=== PATIENT | male | born 1955 | race Caucasian/White ===

== ENCOUNTER 2020-11-12 17:24 | Observation (INO) ==
[2020-11-12 20:57] LABS: Alanine Aminotransferase 21 U/L (12-78); Albumin Level 3.7 gm/dl (3.4-5.0); Aspartate Aminotransferase 18 U/L (15-37); BUN Creatinine Ratio 18.4 (10-20); Blood Urea Nitrogen 25 mg/dl (7-18); Calcium 9.1 mg/dl (8.5-10.1); Carbon Dioxide 28 mmol/L (21-32); Chloride 103 mmol/L (98-107); Creatinine Clr Calc Pharmacy 60.5 ml/min; Est GFR (African American) 61.9 ml/min; Est GFR (Non-African American) 53.4 ml/min; Glucose 96 mg/dl (70-99); Hematocrit (blood only) 22.4 % (42-52); Hemoglobin 6.5 g/dL (14.0-18.0); Mean Corpuscular Hemoglobin 22.9 pg (25-34); Mean Corpuscular Volume 78.9 fL (80-100); Platelet Count 438 K/uL (130-400); Potassium 3.9 mmol/L (3.5-5.1); RDW Coefficient of Variation 15.9 % (11.5-14.5); RDW Standard Deviation 46.2 fL (36.4-46.3); Red Blood Count 2.84 M/uL (4.7-6.1); Sodium 137 mmol/L (136-145); White Blood Count 7.85 K/uL (4.8-10.8)
[2020-11-12 20:59] LABS: Basophils # (auto) 0.04 K/uL (0-0.2); Basophils % (auto) 0.5 %; Eosinophils # (auto) 0.14 K/uL (0-0.5); Eosinophils % (auto) 1.8 %; Hypochromasia Present; Immature Granulocytes # (auto) 0.01 K/uL (0.00-0.02); Immature Granulocytes % (auto) 0.1 %; Lymphocytes # (auto) 0.79 K/uL (1.2-3.4); Lymphocytes % (auto) 10.1 %; Monocytes # (auto) 0.49 K/uL (0.11-0.59); Monocytes % (auto) 6.2 %; Neutrophils # (auto) 6.38 K/uL (1.4-6.5); Neutrophils % (auto) 81.3 %; Poikilocytosis Present; Polychromasia 1+
[2020-11-12 21:08] LABS: Albumin Globulin Ratio 0.9 (0.9-2); Alkaline Phosphatase 41 U/L (45-117); Bilirubin,Total 0.4 mg/dl (0.2-1); Globulin 4.3 gm/dl (2.5-4.0); Troponin I < 0.015 ng/ml (0-0.045)
[2020-11-12] MEDS ORDERED: SODIUM CHLORIDE 0.9% 1000ML 1,000 ML IV ONE (21:18)
[2020-11-12] MEDS ORDERED: SODIUM CHLORIDE 0.9% 250 ML IV PRN (21:18)
[2020-11-12 21:22] LABS: Appearance Urine Clear (Clear); Bilirubin Urine Negative (Negative); Blood Urine Negative (Negative); Color Urine Yellow; Glucose Urine UA Negative (Negative); Ketones Urine Negative (Negative); Leukocyte Esterase Urine Negative (Negative); Nitrite Urine Negative (Negative); Protein Urine Trace (Negative); Specific Gravity Urine 1.025 (1.000-1.030); Urobilinogen Urine Negative (Negative); pH Urine 5.5 (4.5-7.5)
[2020-11-12 21:30] LABS: Reticulocyte % 1.6 % (0.5-2.0); Reticulocytes # 0.05 10^6/uL (0.02-0.10)
[2020-11-12 21:34] LABS: Bacteria Urine Negative (Negative); Epithelial Cell Urine 0-5 /lpf (0-5); RBC Urine 0-4 /hpf (0-4); WBC Urine 0-5 /hpf (0-5)
[2020-11-12 21:49] LABS: Bilirubin Direct < 0.1 mg/dl (0-0.2); Ferritin 6.9 ng/ml (8-388); Iron 13 mcg/dl (35-175); Lipase 233 U/L (73-393); Phosphorus 3.6 mg/dl (2.5-4.9); T4 Free Thyroxine 0.33 ng/dl (0.8-1.6); Total Iron Binding Capacity 452 mcg/dl (250-450); Transferrin 389 mg/dl (200-360)
[2020-11-12] MEDS ORDERED: OPTIRAY 320 100ml IV ONE (22:51)
--- NOTE | 2020-11-12 23:27 | Emergency Department Note ---
Impression & Plan Symptomatic anemia, Hypothyroidism, Iron deficiency, Syncope ED Provider Note NAME: JACQUELINE LIPSCOMB AGE: 65 SEX: M ARRIVES VIA: Walk-In INFORMANT: Patient, ED PROVIDER(S): Kermit Orozco MD CHIEF COMPLAINT: Weakness, lightheadedness, syncope PLAN: Disposition: Admit MEDICAL DECISION MAKING: The patient is a pleasant 65-year-old gentleman with a past medical history of remote tonsillar cancer per patient who presents to the emergency department for evaluation of syncopal episode yesterday in the setting of having ongoing generalized weakness, lightheadedness over the past month or more. He reports yesterday he was doing the dishes and probably bent down and began to feel lightheaded so he sat in the kitchen chair and thought he was awake the whole time but reports his said he was "out for several seconds". He never fell to the ground. He does report that he did vomit and this was not bloody or black. He denies any black stool. He reports he intermittently might have small amounts of blood that he attributes to hemorrhoids. He denies any gross bloody stool or hemorrhage. He denies any recent illness including denies feve rs, chills, cough, congestion. On arrival the patient is fatigued appearing but no acute distress, afebrile with stable vital signs. He appears clinically dry. He has mild pallor. His abdomen is benign. He has no focal deficits. EKG without overt acute ischemia. Chest x-ray negative for acute car diopulmonary process per my preliminary review. WBC within normal limits. H/H 6.5/22.4 without prior values for comparison. Chemistry without metabolic acidosis. BUN is 25. Iron is low at 13 with ferritin low at 6.9. LFTs unremarkable. Troponin negative/undetectable. TSH is elevated with low free T4 and T3 c/w hypothyroidism. UA without evidence of infection. COVID-19 PCR was negative. Given the patient's symptomatic anemia he was consented and agreed to proceed with blood transfusion. He was crossed for [address] of the head and abdomen and pelvis were performed and negative for acute process per preliminary stat rad report. Patient agrees with plan for admission. Case was discussed [place]. Boyd, [facility] [place], who will evaluate the patient for admission. Triage Nursing notes reviewed and agree them. Prior medical records reviewed Vital Signs: reviewed and remarkable for no significant abnormalities Differential diagnosis: Infection, dehydration, metabolic abnormality, hypo/hyperglycemia, electrolyte disturbance, anemia, hypoxia, cardiac sources, intracerebral event, toxicologic, neurologic, as well as other pathologies. ER treatment provided: See below. Diagnostics interpreted by me: ECG: Normal sinus rhythm with sinus arrhythmia, 72 bpm, no ectopy, no overt ST elevation or depression, QTC 457, QRS 110. Cardiac Monitoring: An order for continuous cardiac monitoring was placed and demonstrated normal sinus rhythm with sinus arrhythmia, no ectopy, 72 bpm. Laboratory studies: See below Imaging studies: [facility] Preliminary Findings Only See Final Report For Complete Findings CT HEAD: Comparison: None. No ICH, mass effect or edema. No evidence of acute cortical stroke. Periventricular small vessel ischemic change. Mild generalized brain atrophy. Visualized sinuses and mastoid air cells are clear. Radiologist: Trini Lyman MD Study ready at 23:01 and initial results transmitted at 23:22 Preliminary Findings Only See Final Report For Complete Findings CT ABDOMEN & PELVIS With Contrast: No prior exam for comparison. Minimal bilateral lower lobe atelectasis. Normal cardiac size with coronary artery calcifications. No pleural effusion or pneumothorax pain Normal liver, gallbladder and biliary system. Normal pancreas, spleen, bilateral adrenal glands. Normal right kidney. Left lower renal pole simple cyst measuring 4.8 x 4.6 cm. Otherwise normal left kidney. Normal stomach. Nonspecific small bowel. Moderate fecal debris within the colon. Normal appendix. No signs of bowel obstruction. Normal urinary bladder. Normal size of prostate gland. Osteopenia along with degenerative disease of the spine. Radiologist: Trini Lyman MD Study ready at 23:11 and initial results transmitted at 23:49 Consultation(s): Case was discussed with Dr. Boyd, [facility] [place], who will evaluate the patient for admission. HPI: The patient is a pleasant 65-year-old gentleman with a past medical history of remote tonsillar cancer per patient who presents to the emergency department for evaluation of syncopal episode yesterday in the setting of having ongoing generalized weakness, lightheadedness over the past month or more. He reports yesterday he was doing the dishes and probably bent down and began to feel lightheaded so he sat in the kitchen chair and thought he was awake the whole time but reports his said he was "out for several seconds". He never fell to the ground. He does report that he did vomit and this was not bloody or black. He denies any black stool. He reports he intermittently might have small amounts of blood that he attributes to hemorrhoids. He denies any gross bloody stool or hemorrhage. He denies any recent illness including denies fevers, chills, cough, congestion. ROS: See above HPI for pertinent positives & negatives. A total of 10 systems reviewed and were otherwise negative. PAST MEDICAL HISTORY:See Below PAST SURGICAL HISTORY:See Below FAMILY HISTORY:See Below SOCIAL HISTORY:See Below HOME MEDICATIONS:See Below ALLERGIES:See Below VITALS:See Below PHYSICAL EXAMINATION: GENERAL: Awake, alert, fatigued-appearing, in no distress HENT: Normocephalic, atraumatic. Oropharynx mucous membranes. EYES: Mild pallor to conjunctiva. Sclera non-icteric. NECK: Supple. No nuchal rigidity. FROM. No JVD. RESPIRATORY: Clear to auscultation. CARDIAC: Regular rate, normal rhythm. Extremities warm and well perfused. Pulses equal. ABDOMEN: Soft, non-distended. No tenderness to palpation. No rebound or guarding. No masses. MUSCULOSKELETAL: Chest examination reveals no tenderness. The back is s ymmetrical on inspection without obvious abnormality. There is no CVA tenderness to palpation. No joint edema. LOWER EXTREMITIES: Calves are equal size bilaterally and non-tender. No edema. No discoloration. NEURO: Normal sensorium. No sensory or motor deficits noted. SKIN: Mild pallor. No rash or jaundice noted. ED COURSE: Critical Care: I have personally spent greater than 45 minutes of critical care time in the direct management of this patient. This includes bedside care, interpretation of diagnostic studies, and testing, discussion with consultants, patient, and family members, and other required patient management activities. This 45 minutes is in excess of all separately billable procedures. Kermit Orozco MD Past Med/Surg History Medical History (Updated 11/13/20 @ 17:17 by Kermit Orozco MD) History of cancer tonsil s/p surgical removal, chemo and XRT Surgical History No significant past surgical history Family History Other Intestinal cancer Thyroid cancer Social History Smoking Status: Former smoker Second Hand Exposure: No; Hx Alcohol Use: Yes Alcohol type: hard liquor Hx Substance Use: No Preferred Language: Micronesian Communication Ability: Effective Beliefs That Will Affect Care: None marital status: Current Living Situation: Spouse Feels Safe at Home: Yes Assistive Devices: None Allergies Allergies Allergy/AdvReac Type Severity Reaction Status Date / Time No Known Allergies Allergy Unverified 11/12/20 22:17 Home Meds Home Medications Medication Instructions Recorded Confirmed food supplemt, lactose-reduced 1 ea PO QAM 11/12/20 11/12/20 0.04 gram-1 kcal/mL oral liquid (Boost) pediatric multivitamin no.76 2 tab PO QAM 11/12/20 11/12/20 (Gummy Dinos) Previous Rx's Medication Instructions Recorded levothyroxine 100 mcg tablet 100 mcg PO DAILYBB 30 Days #30 tab 11/13/20 (Synthroid) Results & Data (ED) Vital Signs Vital Signs - 24 hr 11/12/20 17:32 11/12/20 20:18 11/12/20 21:36 Temperature 36.9 C Temperature Source Temporal Artery Scan Pulse Rate - Lying 69 Pulse Rate - Sitting 72 Pulse Rate - Standing 68 Pulse Rate 82 70 Pulse Rate from SpO2 Sensor 71 Respiratory Rate 19 17 Respiratory Effort / Characteristics Non-Labored Respiratory Depth Normal Respiratory Pattern Regular Blood Pressure - Lying 153/88 H Blood Pressure - Sitting 157/83 H Blood Pressure- Standing 118/45 L Blood Pressure 114/69 Blood Pressure Mean 84 Blood Pressure Position Pulse Oximetry 99 99 Oxygen Delivery Method Room Air Room Air Sepsis Recent Fever Within 48 Hours No Sepsis New/Unexplained Change in Mental Status N/A Sepsis Action Taken by Nursing No Action Required 11/12/20 22:00 11/12/20 22:30 11/12/20 23:00 Temperature Temperature Source Pulse Rate - Lying Pulse Rate - Sitting Pulse Rate - Standing Pulse Rate 71 73 Pulse Rate from SpO2 Sensor 70 73 78 Respiratory Rate 16 14 Respiratory Effort / Characteristics Respiratory Depth Respiratory Pattern Blood Pressure - Lying Blood Pressure - Sitting Blood Pressure- Standing Blood Pressure 153/97 H 158/84 H Blood Pressure Mean 115 108 Blood Pressure Position Pulse Oximetry 99 98 98 Oxygen Delivery Method Room Air Room Air Sepsis Recent Fever Within 48 Hours Sepsis New/Unexplained Change in Mental Status Sepsis Action Taken by Nursing 11/12/20 23:30 11/13/20 00:00 11/13/20 00:16 Temperature 36.7 C Temperature Source Oral Pulse Rate - Lying Pulse Rate - Sitting Pulse Rate - Standing Pulse Rate 69 70 Pulse Rate from SpO2 Sensor 70 85 Respiratory Rate 12 18 Respiratory Effort / Characteristics Respiratory Depth Respiratory Pattern Blood Pressure - Lying Blood Pressure - Sitting Blood Pressure- Standing Blood Pressure 152/93 H 149/90 H 162/98 H Blood Pressure Mean 112 109 119 Blood Pressure Position Lying Pulse Oximetry 96 99 98 Oxygen Delivery Method Sepsis Recent Fever Within 48 Hours Sepsis New/Unexplained Change in Mental Status Sepsis Action Taken by Nursing 11/13/20 00:30 11/13/20 00:34 11/13/20 00:35 Temperature 36.5 C 36.5 C Temperature Source Oral Oral Pulse Rate - Lying Pulse Rate - Sitting Pulse Rate - Standing Pulse Rate 77 77 77 Pulse Rate from SpO2 Sensor 76 Respiratory Rate 18 18 18 Respiratory Effort / Characteristics Respiratory Depth Respiratory Pattern Blood Pressure - Lying Blood Pressure - Sitting Blood Pressure- Standing Blood Pressure 177/104 H 161/99 H 161/99 H Blood Pressure Mean 128 119 119 Blood Pressure Position Lying Lying Pulse Oximetry 99 99 99 Oxygen Delivery Method Sepsis Recent Fever Within 48 Hours Sepsis New/Unexplained Change in Mental Status Sepsis Action Taken by Nursing Laboratory Data Attestation: I reviewed the patient's lab results. Result diagrams: 11/13/20 06:08 11/12/20 20:22 Lab Results 11/12/20 11/12/20 11/12/20 Range/Units 20:22 20:22 20:22 WBC 7.85 (4.8-10.8) K/uL RBC 2.84 L (4.7-6.1) M/uL Hgb 6.5 L* (14.0-18.0) g/dL Hct 22.4 L (42-52) % MCV 78.9 L (80-100) fL MCH 22.9 L (25-34) pg MCHC 29.0 L (32-36) g/dL RDW Std Deviation 46.2 (36.4-46.3) fL RDW Coeff of Jeanine 15.9 H (11.5-14.5) % Plt Count 438 H (130-400) K/uL MPV 9.0 (7.4-10.4) fL Immature Gran % (Auto) 0.1 % Neut % (Auto) 81.3 % Lymph % (Auto) 10.1 % [place] % (Auto) 6.2 % Eos % (Auto) 1.8 % Baso % (Auto) 0.5 % Reticulocyte % (Auto) 1.6 (0.5-2.0) % Neut # (Auto) 6.38 (1.4-6.5) K/uL Lymph # (Auto) 0.79 L (1.2-3.4) K/uL [place] # (Auto) 0.49 (0.11-0.59) K/uL Eos # (Auto) 0.14 (0-0.5) K/uL Baso # (Auto) 0.04 (0-0.2) K/uL Reticulocyte # 0.05 (0.02-0.10) 10^6/uL Immature Gran # (Auto) 0.01 (0.00-0.02) K/uL Polychromasia 1+ Hypochromasia Present Poikilocytosis Present Sodium 137 (136-145) mmol/L Potassium 3.9 (3.5-5.1) mmol/L Chloride 103 (98-107) mmol/L Carbon Dioxide 28 (21-32) mmol/L Anion Gap 6.0 (3-11) BUN 25 H (7-18) mg/dl Creatinine 1.37 (0.6-1.4) mg/dl Est Cr Clr Drug Dosing 60.5 ml/min Est GFR ( Amer) 61.9 ml/min Est GFR (Non-Af Amer) 53.4 ml/min BUN/Creatinine Ratio 18.4 (10-20) Glucose 96 (70-99) mg/dl Calcium 9.1 (8.5-10.1) mg/dl Phosphorus (2.5-4.9) mg/dl Magnesium (1.8-2.4) mg/dl Iron (35-175) mcg/dl TIBC (250-450) mcg/dl Transferrin (200-360) mg/dl Ferritin (8-388) ng/ml Total Bilirubin 0.4 (0.2-1) mg/dl Direct Bilirubin (0-0.2) mg/dl AST 18 (15-37) U/L ALT 21 (12-78) U/L Alkaline Phosphatase 41 L (45-117) U/L Troponin I < 0.015 (0-0.045) ng/ml Total Protein 8.0 (6.4-8.2) gm/dl Albumin 3.7 (3.4-5.0) gm/dl Globulin 4.3 H (2.5-4.0) gm/dl Albumin/Globulin Ratio 0.9 (0.9-2) Lipase (73-393) U/L TSH 84.000 H (0.300-4.500) uIu/ml Free T4 (0.8-1.6) ng/dl Free T3 (2.3-4.2) pg/ml Urine Color Urine Appearance (Clear) Urine pH (4.5-7.5) Ur Specific Gilliam (1.000-1.030) Urine Protein (Negative) Urine Glucose (UA) (Negative) Urine Ketones (Negative) Urine Blood (Negative) Urine Nitrite (Negative) Urine Bilirubin (Negative) Urine Urobilinogen (Negative) Ur Leukocyte Esterase (Negative) Urine RBC (0-4) /hpf Urine WBC (0-5) /hpf Ur Epithelial Cells (0-5) /lpf Urine Bacteria (Negative) COVID-19 Eval Order SARS-CoV-2 (PCR) (Negative) Blood Type Blood Type Recheck Antibody Screen Crossmatch 11/12/20 11/12/20 11/12/20 Range/Units 20:22 21:14 21:24 WBC (4.8-10.8) K/uL RBC (4.7-6.1) M/uL Hgb (14.0-18.0) g/dL Hct (42-52) % MCV (80-100) fL MCH (25-34) pg MCHC (32-36) g/dL RDW Std Deviation (36.4-46.3) fL RDW Coeff of Jeanine (11.5-14.5) % Plt Count (130-400) K/uL MPV (7.4-10.4) fL Immature Gran % (Auto) % Neut % (Auto) % Lymph % (Auto) % [place] % (Auto) % Eos % (Auto) % Baso % (Auto) % Reticulocyte % (Auto) (0.5-2.0) % Neut # (Auto) (1.4-6.5) K/uL Lymph # (Auto) (1.2-3.4) K/uL [place] # (Auto) (0.11-0.59) K/uL Eos # (Auto) (0-0.5) K/uL Baso # (Auto) (0-0.2) K/uL Reticulocyte # (0.02-0.10) 10^6/uL Immature Gran # (Auto) (0.00-0.02) K/uL Polychromasia Hypochromasia Poikilocytosis Sodium (136-145) mmol/L Potassium (3.5-5.1) mmol/L Chloride (98-107) mmol/L Carbon Dioxide (21-32) mmol/L Anion Gap (3-11) BUN (7-18) mg/dl Creatinine (0.6-1.4) mg/dl Est Cr Clr Drug Dosing ml/min Est GFR ( Amer) ml/min Est GFR (Non-Af Amer) ml/min BUN/Creatinine Ratio (10-20) Glucose (70-99) mg/dl Calcium (8.5-10.1) mg/dl Phosphorus 3.6 (2.5-4.9) mg/dl Magnesium 2.0 (1.8-2.4) mg/dl Iron 13 L (35-175) mcg/dl TIBC 452 H (250-450) mcg/dl Transferrin 389 H (200-360) mg/dl Ferritin 6.9 L (8-388) ng/ml Total Bilirubin (0.2-1) mg/dl Direct Bilirubin < 0.1 (0-0.2) mg/dl AST (15-37) U/L ALT (12-78) U/L Alkaline Phosphatase (45-117) U/L Troponin I (0-0.045) ng/ml Total Protein (6.4-8.2) gm/dl Albumin (3.4-5.0) gm/dl Globulin (2.5-4.0) gm/dl Albumin/Globulin Ratio (0.9-2) Lipase 233 (73-393) U/L TSH (0.300-4.500) uIu/ml Free T4 0.33 L (0.8-1.6) ng/dl Free T3 (2.3-4.2) pg/ml Urine Color Yellow Urine Appearance Clear (Clear) Urine pH 5.5 (4.5-7.5) Ur Specific Gilliam 1.025 (1.000-1.030) Urine Protein Trace H (Negative) Urine Glucose (UA) Negative (Negative) Urine Ketones Negative (Negative) Urine Blood Negative (Negative) Urine Nitrite Negative (Negative) Urine Bilirubin Negative (Negative) Urine Urobilinogen Negative (Negative) Ur Leukocyte Esterase Negative (Negative) Urine RBC 0-4 (0-4) /hpf Urine WBC 0-5 (0-5) /hpf Ur Epithelial Cells 0-5 (0-5) /lpf Urine Bacteria Negative (Negative) COVID-19 Eval Order Covid19 at [facility] SARS-CoV-2 (PCR) (Negative) Blood Type Blood Type Recheck Antibody Screen Crossmatch 11/12/20 11/12/20 11/12/20 Range/Units 21:24 21:44 21:44 WBC (4.8-10.8) K/uL RBC (4.7-6.1) M/uL Hgb (14.0-18.0) g/dL Hct (42-52) % MCV (80-100) fL MCH (25-34) pg MCHC (32-36) g/dL RDW Std Deviation (36.4-46.3) fL RDW Coeff of Jeanine (11.5-14.5) % Plt Count (130-400) K/uL MPV (7.4-10.4) fL Immature Gran % (Auto) % Neut % (Auto) % Lymph % (Auto) % [place] % (Auto) % Eos % (Auto) % Baso % (Auto) % Reticulocyte % (Auto) (0.5-2.0) % Neut # (Auto) (1.4-6.5) K/uL Lymph # (Auto) (1.2-3.4) K/uL [place] # (Auto) (0.11-0.59) K/uL Eos # (Auto) (0-0.5) K/uL Baso # (Auto) (0-0.2) K/uL Reticulocyte # (0.02-0.10) 10^6/uL Immature Gran # (Auto) (0.00-0.02) K/uL Polychromasia Hypochromasia Poikilocytosis Sodium (136-145) mmol/L Potassium (3.5-5.1) mmol/L Chloride (98-107) mmol/L Carbon Dioxide (21-32) mmol/L Anion Gap (3-11) BUN (7-18) mg/dl Creatinine (0.6-1.4) mg/dl Est Cr Clr Drug Dosing ml/min Est GFR ( Amer) ml/min Est GFR (Non-Af Amer) ml/min BUN/Creatinine Ratio (10-20) Glucose (70-99) mg/dl Calcium (8.5-10.1) mg/dl Phosphorus (2.5-4.9) mg/dl Magnesium (1.8-2.4) mg/dl Iron (35-175) mcg/dl TIBC (250-450) mcg/dl Transferrin (200-360) mg/dl Ferritin (8-388) ng/ml Total Bilirubin (0.2-1) mg/dl Direct Bilirubin (0-0.2) mg/dl AST (15-37) U/L ALT (12-78) U/L Alkaline Phosphatase (45-117) U/L Troponin I (0-0.045) ng/ml Total Protein (6.4-8.2) gm/dl Albumin (3.4-5.0) gm/dl Globulin (2.5-4.0) gm/dl Albumin/Globulin Ratio (0.9-2) Lipase (73-393) U/L TSH (0.300-4.500) uIu/ml Free T4 (0.8-1.6) ng/dl Free T3 0.93 L (2.3-4.2) pg/ml Urine Color Urine Appearance (Clear) Urine pH (4.5-7.5) Ur Specific Gilliam (1.000-1.030) Urine Protein (Negative) Urine Glucose (UA) (Negative) Urine Ketones (Negative) Urine Blood (Negative) Urine Nitrite (Negative) Urine Bilirubin (Negative) Urine Urobilinogen (Negative) Ur Leukocyte Esterase (Negative) Urine RBC (0-4) /hpf Urine WBC (0-5) /hpf Ur Epithelial Cells (0-5) /lpf Urine Bacteria (Negative) COVID-19 Eval Order SARS-CoV-2 (PCR) NEGATIVE (Negative) Blood Type B Positive Blood Type Recheck Antibody Screen NEGATIVE Crossmatch See Detail 11/12/20 Range/Units 23:03 WBC (4.8-10.8) K/uL RBC (4.7-6.1) M/uL Hgb (14.0-18.0) g/dL Hct (42-52) % MCV (80-100) fL MCH (25-34) pg MCHC (32-36) g/dL RDW Std Deviation (36.4-46.3) fL RDW Coeff of Jeanine (11.5-14.5) % Plt Count (130-400) K/uL MPV (7.4-10.4) fL Immature Gran % (Auto) % Neut % (Auto) % Lymph % (Auto) % [place] % (Auto) % Eos % (Auto) % Baso % (Auto) % Reticulocyte % (Auto) (0.5-2.0) % Neut # (Auto) (1.4-6.5) K/uL Lymph # (Auto) (1.2-3.4) K/uL [place] # (Auto) (0.11-0.59) K/uL Eos # (Auto) (0-0.5) K/uL Baso # (Auto) (0-0.2) K/uL Reticulocyte # (0.02-0.10) 10^6/uL Immature Gran # (Auto) (0.00-0.02) K/uL Polychromasia Hypochromasia Poikilocytosis Sodium (136-145) mmol/L Potassium (3.5-5.1) mmol/L Chloride (98-107) mmol/L Carbon Dioxide (21-32) mmol/L Anion Gap (3-11) BUN (7-18) mg/dl Creatinine (0.6-1.4) mg/dl Est Cr Clr Drug Dosing ml/min Est GFR ( Amer) ml/min Est GFR (Non-Af Amer) ml/min BUN/Creatinine Ratio (10-20) Glucose (70-99) mg/dl Calcium (8.5-10.1) mg/dl Phosphorus (2.5-4.9) mg/dl Magnesium (1.8-2.4) mg/dl Iron (35-175) mcg/dl TIBC (250-450) mcg/dl Transferrin (200-360) mg/dl Ferritin (8-388) ng/ml Total Bilirubin (0.2-1) mg/dl Direct Bilirubin (0-0.2) mg/dl AST (15-37) U/L ALT (12-78) U/L Alkaline Phosphatase (45-117) U/L Troponin I (0-0.045) ng/ml Total Protein (6.4-8.2) gm/dl Albumin (3.4-5.0) gm/dl Globulin (2.5-4.0) gm/dl Albumin/Globulin Ratio (0.9-2) Lipase (73-393) U/L TSH (0.300-4.500) uIu/ml Free T4 (0.8-1.6) ng/dl Free T3 (2.3-4.2) pg/ml Urine Color Urine Appearance (Clear) Urine pH (4.5-7.5) Ur Specific Gilliam (1.000-1.030) Urine Protein (Negative) Urine Glucose (UA) (Negative) Urine Ketones (Negative) Urine Blood (Negative) Urine Nitrite (Negative) Urine Bilirubin (Negative) Urine Urobilinogen (Negative) Ur Leukocyte Esterase (Negative) Urine RBC (0-4) /hpf Urine WBC (0-5) /hpf Ur Epithelial Cells (0-5) /lpf Urine Bacteria (Negative) COVID-19 Eval Order SARS-CoV-2 (PCR) (Negative) Blood Type Blood Type Recheck B Positive Antibody Screen Crossmatch Administered Medications Discontinued Medications Sodium Chloride (Nss 1000ml) 1,000 mls @ 999 mls/hr IV .[id number] ONE Stop: 11/12/20 22:18 Last Infusion: 11/12/20 23:40 Dose: 0 mls/hr Documented by: [id number] Admin: 11/12/20 22:23 Dose: 999 mls/hr Documented by: [id number] Ioversol (Optiray 320 100ml) 94 ml IV ONCE ONE Stop: 11/12/20 22:52 Last Admin: 11/12/20 22:51 Dose: 94 ml Documented by: [id number] Levothyroxine Sodium (Levothyroxine Sodium 100 Mcg Tablet) 100 mcg PO DAILYBB [facility] Stop: 12/13/20 06:29 Last Admin: 11/13/20 05:55 Dose: 100 mcg Documented by: [id number] Imaging Data Radiologist's Impression: Chest X-Ray 11/12/20 20:17 SINGLE VIEW CHEST CLINICAL HISTORY: Generalized weakness. FINDINGS: An AP, portable, upright chest radiograph is obtained. No prior studies are available for comparison at the time of dictation. The heart is top normal for projection. The mediastinal contour is within normal limits. Question 8 mm nodular density in the right upper lobe. No airspace consolidation or pleural effusion is identified. Atelectasis is seen at the lung bases. No pneumothorax is seen. The bony thorax is grossly intact. IMPRESSION: 1. No acute cardiopulmonary abnormality. 2. Question an 8 mm nodular density in the right upper lung. This may be artifactual. Nonemergent chest CT is recommended for further assessment. ACT 112: Positive. There are findings on this exam that require communication between the performing entity and the patient following Patient Test Result Information Act ([place] Act 112) guidelines. Electronically signed by: Jean-Claude Tony M.D. 11/13/2020 8:46 AM Abdomen/Pelvis CT 11/12/20 21:[address] WITH IV CONTRAST CT DOSE: HISTORY: intermittent blood in stool, anemia TECHNIQUE: Multiaxial CT images of the abdomen and pelvis were performed following the use of intravenous contrast. A dose lowering technique was utilized adhering to the principles of ALARA. COMPARISON STUDY: None. FINDINGS: Tree-in-bud nodular opacities within the lung bases consistent with a mild infectious bronchiolitis. No pneumoperitoneum. No pneumatosis. No acute fractures within the visualized osseous structures. Mild anterior wedging within the lower thoracic spine is likely chronic. The liver, gallbladder, pancreas, adrenal glands, spleen, and right kidney are unremarkable. No hydronephrosis. There is a 4.7 cm left renal cyst. The main portal vein is patent. No retroperitoneal lymphadenopathy. Mild bladder wall thickening is likely due to mild prostate gland enlargement. No retroperitoneal or pelvic lymphadenopathy. Suboptimal evaluation for bowel pathology due to the lack of oral contrast. Ther e appears to be focal thickening within the proximal ascending colon at the ileocecal valve best seen in the right lower quadrant on image 216. This measures 4.6 cm in length and is concerning for a colonic mass. Borderline dilated terminal ileum measuring up to 3.1 cm diameter. Therefore, this could represent a low-grade partial small bowel obstruction. This may be secondary to the suspected mass. Normal appendix. IMPRESSION: 1. Focal thickening within the proximal ascending colon at the level of the ileocecal valve which measures 4.6 cm in length. This is suspicious for a colonic mass. Follow-up colonoscopy is recommended for further evaluation. 2. Borderline dilated terminal ileum measuring up to 3.1 cm in diameter. Theref ore, this could represent a low-grade partial small bowel obstruction secondary to the suspected colonic mass. 3. No evidence for metastatic disease. 4. These findings were called/faxed to emergency department following dictation. ACT 112: Positive. There are findings on this exam that require communication between the performing entity and the patient following Patient Test Result Information Act ([place] Act 112) guidelines. Electronically signed by: Wilver Gillespie M.D. 11/13/2020 7:[address] 11/12/20 21:[address] DOSE: 1574.68 mGy.cm HISTORY: syncope, anemia TECHNIQUE: Multiaxial CT images of the head were performed without the use of intravenous contrast. Automated exposure control was utilized for this study. A dose lowering technique was utilized adhering to the principles of ALARA. Comparison: None. Findings: The paranasal sinuses and mastoid air cells are clear. The calvarium and skull base are intact. The ventricles and sulci are within normal limits. There is no mass, hematoma, midline shift, or acute infarct. Impression: No acute intracranial abnormality. ACT 112: Negative or not required by law. Electronically signed by: Wilver Gillespie M.D. 11/13/2020 7:08 AM Discharge Plan Visit Data Chief Complaint: Weakness Stated Complaint: DIZZY WHEN BENDING OVER/GETTING UP, WEAKNESS ED Provider: Kermit Orozco Discharge Problem: Symptomatic anemia, Hypothyroidism, Iron deficiency, Syncope Patient Disposition: Admitted As Inpatient Discharge Instructions Interventions: ED Discharge Assessment Last Done: 11/13/20 01:41 Discharge Problem: Hypothyroidism Qualifiers: Hypothyroidism type: unspecified Qualified Code(s): E03.9 - Hypothyroidism, unspecified Syncope Qualifiers: Syncope type: unspecified Qualified Code(s): R55 - Syncope and collapse
--- NOTE | 2020-11-13 00:57 | History & Physical Report ---
Date of Service November 13, 2020 Assessment & Plan (1) Anemia: Plan: Patient with microcytic, hypochromic anemia with Hgb of 6.5, Hct of 22.4 with generalized weakness, fatigue, syncope. No known history of anemia. No prior transfusions. Iron studies suggest iron deficiency with low iron and Ferritin and high TIBC. Ddx to include GI losses, malignancy, secondary to hypothyroidism. Transfusion 2u PRBCs initiated in ER -Continue transfusion -Repeat CBC in AM -Hemoccult stools -Consider GI consultation - patient will need to have screening colonoscopy - has not had one yet. ?Inpatient vs outpatient (2) Hypothyroidism: Plan: Labs suggest primary hypothyroidism with elevation of TSH and low T3 and T4. He reports being told years ago that he had a problem with his thyroid but has nevstevan r been on medication. His exam does show some anterior neck fullness - ?age related changes vs small goiter. His father did pass away with thyroid cancer May be causing anemia as above -Check anti-TPO and anti-thyroglobulin -Check Thyroid ultrasound -Initiate Synthroid Plan: F/E/N - Heplock. Electrolytes WNL. Clear liquid diet as tolerated Ppx - SCDs Code - Full Dispo - Observation to medical History of Present Illness Chief Complaint: weakness, fatigue, syncope Primary Care Provider: Zackary Boyd MD Buck Watson is a pleasant 65yo male presenting with symptomatic anemia requiring transfusion. He reports progressive generalized weakness, lightheadedness over the last 1.5 months. He notes a decreased exercise tolerance and low energy level - needing to stop several times while mowing the lawn or walking up his steep driveway lately. He also has episodic lightheadedness, mostly noted with changing positions. Patient had a syncopal event yesterday. He was cleaning up after dinner and became lightheaded and dizzy with some blurry vision after bending over. He sat down in the chair to rest then remembers waking up to his shouting his name. He had a small amount of vomit on his shirt when he woke up. He denies chest pain, palpitations, SOB or RICHTER. He denies head trauma or fall. No melena, hemetemesis. He reports occasionally experiencing some blood in the toilet bowl after a BM but thinks it may be secondary to hemorrhoids. No bruising or bleeding. No hematuria. No history of prior blood transfusions. ER Course: 2u PRBCs Allergies Allergy/AdvReac Type Severity Reaction Status Date / Time No Known Allergies Allergy Unverified 11/12/20 22:17 Home Medications Medication Instructions Recorded Confirmed Type food supplemt, lactose-reduced 1 ea PO QAM 11/12/20 11/12/20 History 0.04 gram-1 kcal/mL oral liquid (Boost) pediatric multivitamin no.76 2 tab PO QAM 11/12/20 11/12/20 History (Gummy Dinos) Past Med/Surg History Medical History (Updated 11/13/20 @ 01:08 by Priya Boyd DO) History of cancer tonsil s/p surgical removal, chemo and XRT Surgical History (Updated 11/13/20 @ 01:02 by Priya Boyd DO) No significant past surgical history Family History (Updated 11/13/20 @ 01:02 by Priya Boyd DO) Other Intestinal cancer Thyroid cancer Social History Smoking Status: Former smoker Feels Safe at Home: Yes Review of Systems Review of Systems: All systems reviewed & are unremarkable except as noted in HPI & below Physical Exam Physical Exam: General: patient resting comfortably, NAD, non-toxic in appearance, AA&O x 4, +Pallor Skin: warm, dry, intact, no rashes or lesions, pale HEENT: NC/AT, PERRL, EOMI, anicteric sclera, conjunctiva without injection, external ear normal to inspection and nontender, nares patent, moist mucus membranes, dentition intact, small lesion on left tongue, neck supple, trachea midline, no LAD, fullness of anterior neck possibly consistent with small goiter. No tenderness with palpation of thyroid gland, no appreciable nodules, no JVD Heart: +S1/S2, regular, no m/r/g Lungs: equal air entry bilaterally, no rales/rhonchi/wheezes Abd: +BS, soft, NT/ND, no masses/organomegaly/ascites Ext: warm, 2+ pulses in UE/LE bilaterally, no clubbing/cyanosis or edema Neuro: nonfocal, patient AA&O x 4, speech intact, no facial droop, moving all extremities on command with equal strength 5/5 Results & Data Results & Data ([place]) Vital Signs (Past 12 Hours) Vital Signs Temp Pulse Resp BP Pulse Ox 11/13/20 00:50 36.7 C 70 18 144/92 H 97 11/13/20 00:35 36.5 C 77 18 161/99 H 99 11/13/20 00:34 36.5 C 77 18 161/99 H 99 11/13/20 00:16 36.7 C 70 18 162/98 H 98 11/13/20 00:00 69 12 149/90 H 99 11/12/20 23:30 152/93 H 96 11/12/20 23:00 158/84 H 98 11/12/20 22:30 73 14 153/97 H 98 11/12/20 22:00 71 16 99 11/12/20 21:36 70 17 99 11/12/20 17:32 36.9 C 82 19 114/69 99 Laboratory Results Laboratory Results WBC 7.85 K/uL (4.8-10.8) 11/12/20 20:22 RBC 2.84 M/uL (4.7-6.1) L 11/12/20 20:22 Hgb 6.5 g/dL (14.0-18.0) L* 11/12/20 20:22 Hct 22.4 % (42-52) L 11/12/20 20:22 MCV 78.9 fL (80-100) L 11/12/20 20:22 MCH 22.9 pg (25-34) L 11/12/20 20:22 MCHC 29.0 g/dL (32-36) L 11/12/20 20:22 RDW Std Deviation 46.2 fL (36.4-46.3) 11/12/20 20:22 RDW Coeff of Jeanine 15.9 % (11.5-14.5) H 11/12/20 20:22 Plt Count 438 K/uL (130-400) H 11/12/20 20:22 MPV 9.0 fL (7.4-10.4) 11/12/20 20:22 Immature Gran % (Auto) 0.1 % 11/12/20 20:22 Neut % (Auto) 81.3 % 11/12/20 20:22 Lymph % (Auto) 10.1 % 11/12/20 20:22 Schleicher % (Auto) 6.2 % 11/12/20 20: Eos % (Auto) 1.8 % 11/12/20 20: Baso % (Auto) 0.5 % 11/12/20 20: Reticulocyte % (Auto) 1.6 % (0.5-2.0) 11/12/20 20:22 Neut # (Auto) 6.38 K/uL (1.4-6.5) 11/12/20 20: Lymph # (Auto) 0.79 K/uL (1.2-3.4) L 11/12/20 20:22 Schleicher # (Auto) 0.49 K/uL (0.11-0.59) 11/12/20 20: Eos # (Auto) 0.14 K/uL (0-0.5) 11/12/20 20: Baso # (Auto) 0.04 K/uL (0-0.2) 11/12/20 20: Reticulocyte # 0.05 10^6/uL (0.02-0.10) 11/12/20 20: Immature Gran # (Auto) 0.01 K/uL (0.00-0.02) 11/12/20 20: Polychromasia 1+ 11/12/20 20:22 Hypochromasia Present 11/12/20 20:22 Poikilocytosis Present 11/12/20 20:22 Sodium 137 mmol/L (136-145) 11/12/20 20:22 Potassium 3.9 mmol/L (3.5-5.1) 11/12/20 20: Chloride 103 mmol/L (98-107) 11/12/20 20:22 Carbon Dioxide 28 mmol/L (21-32) 11/12/20 20:22 Anion Gap 6.0 (3-11) 11/12/20 20:22 BUN 25 mg/dl (7-18) H 11/12/20 20: Creatinine 1.37 mg/dl (0.6-1.4) 11/12/20 20:22 Est Cr Clr Drug Dosing 60.5 ml/min 11/12/20 20:22 Est GFR ( Amer) 61.9 ml/min 11/12/20 20:22 Est GFR (Non-Af Amer) 53.4 ml/min 11/12/20 20:22 BUN/Creatinine Ratio 18.4 (10-20) 11/12/20 20:22 Glucose 96 mg/dl (70-99) 11/12/20 20:22 Calcium 9.1 mg/dl (8.5-10.1) 11/12/20 20:22 Phosphorus 3.6 mg/dl (2.5-4.9) 11/12/20 20:22 Magnesium 2.0 mg/dl (1.8-2.4) 11/12/20 20:22 Iron 13 mcg/dl (35-175) L 11/12/20 20:22 TIBC 452 mcg/dl (250-450) H 11/12/20 20:22 Transferrin 389 mg/dl (200-360) H 11/12/20 20:22 Ferritin 6.9 ng/ml (8-388) L 11/12/20 20:22 Total Bilirubin 0.4 mg/dl (0.2-1) 11/12/20 20:22 Direct Bilirubin < 0.1 mg/dl (0-0.2) 11/12/20 20:22 AST 18 U/L (15-37) 11/12/20 20:22 ALT 21 U/L (12-78) 11/12/20 20:22 Alkaline Phosphatase 41 U/L (45-117) L 11/12/20 20:22 Troponin I < 0.015 ng/ml (0-0.045) 11/12/20 20:22 Total Protein 8.0 gm/dl (6.4-8.2) 11/12/20 20:22 Albumin 3.7 gm/dl (3.4-5.0) 11/12/20 20:22 Globulin 4.3 gm/dl (2.5-4.0) H 11/12/20 20:22 Albumin/Globulin Ratio 0.9 (0.9-2) 11/12/20 20:22 Lipase 233 U/L (73-393) 11/12/20 20:22 TSH 84.000 uIu/ml (0.300-4.500) H 11/12/20 20:22 Free T4 0.33 ng/dl (0.8-1.6) L 11/12/20 20:22 Free T3 0.93 pg/ml (2.3-4.2) L 11/12/20 21:44 Urine Color Yellow 11/12/20 21:14 Urine Appearance Clear (Clear) 11/12/20 21:14 Urine pH 5.5 (4.5-7.5) 11/12/20 21:14 Ur Specific [place] 1.025 (1.000-1.030) 11/12/20 21:14 Urine Protein Trace (Negative) H 11/12/20 21:14 Urine Glucose (UA) Negative (Negative) 11/12/20 21:14 Urine Ketones Negative (Negative) 11/12/20 21:14 Urine Blood Negative (Negative) 11/12/20 21:14 Urine Nitrite Negative (Negative) 11/12/20 21:14 Urine Bilirubin Negative (Negative) 11/12/20 21:14 Urine Urobilinogen Negative (Negative) 11/12/20 21:14 Ur Leukocyte Esterase Negative (Negative) 11/12/20 21:14 Urine RBC 0-4 /hpf (0-4) 11/12/20 21:14 Urine WBC 0-5 /hpf (0-5) 11/12/20 21:14 Ur Epithelial Cells 0-5 /lpf (0-5) 11/12/20 21:14 Urine Bacteria Negative (Negative) 11/12/20 21:14 COVID-19 Eval Order Covid19 at [facility] 11/12/20 21:24 SARS-CoV-2 (PCR) NEGATIVE (Negative) 11/12/20 21:24 Blood Type B Positive 11/12/20 21:44 Blood Type Recheck B Positive 11/12/20 23:03 Antibody Screen NEGATIVE 11/12/20 21:44 Crossmatch See Detail 11/12/20 21:[address] Head - per STAT rad: No comparison. NO ICH, mass effect or edema. NO evidence of acute cortical stroke. Periventricular small vessel ischemic change. Mild generalized brain atrophy. Visualized sinuses and mastoid air cells are clear. CT Abdomen and Pelvis: per STAT rad: No comparisons. Minimal bilateral lower lobe atelectasis. Normal cardiac size with coronary artery calcifications. No pleural effusion or pneumothorax. Normal liver, gallbladder and biliary system. Normal pancreas, spleen, bilateral adrenal glands. Normal right kidney. Left lower renal pole simple cyst measuring 4.8 x 4.6 cm. Otherwise normal left kidney. Norm,al stomach, nonspecific small bowerl. MOderate fecal debris. Code Status & VTE Plan VTE Prophylaxis Plan VTE Prophylaxis will be ordered: Yes PG Care Time/CCT Total # of Minutes Spent Total Time Spent with Patient: Total time spent is greater than 50% in coordination of care (as documented) at patient's floor/unit and/or counseling patient: Coding Level of Care Code INT OBSERVATION CARE 50M LVL 2 Diagnoses Anemia D64.9 Hypothyroidism E03.9
[2020-11-13] MEDS ORDERED: ACETAMINOPHEN 325 MG TAB PO PRN (02:02)
[2020-11-13] MEDS ORDERED: ONDANSETRON INJ 2 MG/ML 2 ML VIAL IV PRN (02:02)
[2020-11-13] MEDS ORDERED: DOCUSATE SODIUM 100 MG CAP PO PRN (02:02)
[2020-11-13] MEDS ORDERED: LEVOTHYROXINE SODIUM 100 MCG TABLET PO SCH (06:30)
--- NOTE | 2020-11-13 07:09 | CT Scan Report ---
HEAD CT NONCONTRAST CT DOSE: 1574.68 mGy.cm HISTORY: syncope, anemia TECHNIQUE: Multiaxial CT images of the head were performed without the use of intravenous contrast. A utomated exposure control was utilized for this study. A dose lowering technique was utilized adheri ng to the principles of ALARA. Comparison: None. Findings: The paranasal sinuses and mastoid air cells are clear. The calvarium and skull base are int act. The ventricles and sulci are within normal limits. There is no mass, hematoma, midline shift, or acute infarct. Impression: No acute intracranial abnormality. ACT 112: Negative or not required by law. Electronically signed by: Wilver Gillespie M.D. 11/13/2020 7:08 AM
--- NOTE | 2020-11-13 07:44 | CT Scan Report ---
ABDOMEN AND PELVIS CT WITH IV CONTRAST CT DOSE: HISTORY: intermittent blood in stool, anemia TECHNIQUE: Multiaxial CT images of the abdomen and pelvis were performed following the use of intrave nous contrast. A dose lowering technique was utilized adhering to the principles of ALARA. COMPARISON STUDY: None. FINDINGS: Tree-in-bud nodular opacities within the lung bases consistent with a mild infectious bronc hiolitis. No pneumoperitoneum. No pneumatosis. No acute fractures within the visualized osseous struc tures. Mild anterior wedging within the lower thoracic spine is likely chronic. The liver, gallbladde r, pancreas, adrenal glands, spleen, and right kidney are unremarkable. No hydronephrosis. There is a 4.7 cm left renal cyst. The main portal vein is patent. No retroperitoneal lymphadenopathy. Mild daniel dder wall thickening is likely due to mild prostate gland enlargement. No retroperitoneal or pelvic l ymphadenopathy. Suboptimal evaluation for bowel pathology due to the lack of oral contrast. There jean ears to be focal thickening within the proximal ascending colon at the ileocecal valve best seen in t he right lower quadrant on image 216. This measures 4.6 cm in length and is concerning for a colonic mass. Borderline dilated terminal ileum measuring up to 3.1 cm diameter. Therefore, this could repres ent a low-grade partial small bowel obstruction. This may be secondary to the suspected mass. Normal appendix. IMPRESSION: 1. Focal thickening within the proximal ascending colon at the level of the ileocecal valve which lucero sures 4.6 cm in length. This is suspicious for a colonic mass. Follow-up colonoscopy is recommended f or further evaluation. 2. Borderline dilated terminal ileum measuring up to 3.1 cm in diameter. Therefore, this could repres ent a low-grade partial small bowel obstruction secondary to the suspected colonic mass. 3. No evidence for metastatic disease. 4. These findings were called/faxed to emergency department following dictation. ACT 112: Positive. There are findings on this exam that require communication between the performing entity and the patient following Patient Test Result Information Act ([place] Act 112) guidelines. Electronically signed by: Wilver Gillespie M.D. 11/13/2020 7:42 AM
--- NOTE | 2020-11-13 08:47 | XRay Report ---
SINGLE VIEW CHEST CLINICAL HISTORY: Generalized weakness. FINDINGS: An AP, portable, upright chest radiograph is obtained. No prior studies are available for c omparison at the time of dictation. The heart is top normal for projection. The mediastinal contour is within normal limits. Question 8 mm nodular density in the right upper lobe. No airspace consolida tion or pleural effusion is identified. Atelectasis is seen at the lung bases. No pneumothorax is see n. The bony thorax is grossly intact. IMPRESSION: 1. No acute cardiopulmonary abnormality. 2. Question an 8 mm nodular density in the right upper lung. This may be artifactual. Nonemergent [facility] st CT is recommended for further assessment. ACT 112: Positive. There are findings on this exam that require communication between the performing entity and the patient following Patient Test Result Information Act ([place] Act 112) guidelines. Electronically signed by: Jean-Claude Tony M.D. 11/13/2020 8:46 AM
[2020-11-13 10:10] LABS: Basophils # (auto) 0.04 K/uL (0-0.2); Basophils % (auto) 0.7 %; Eosinophils % (auto) 3.7 %; Hematocrit (blood only) 26.3 % (42-52); Hemoglobin 8.3 g/dL (14.0-18.0); Lymphocytes # (auto) 0.66 K/uL (1.2-3.4); Lymphocytes % (auto) 12.2 %; Mean Corpuscular Hemoglobin 25.2 pg (25-34); Mean Corpuscular Hgb Conc 31.6 g/dL (32-36); Mean Corpuscular Volume 79.9 fL (80-100); Mean Platelet Volume 9.4 fL (7.4-10.4); Monocytes # (auto) 0.38 K/uL (0.11-0.59); Monocytes % (auto) 7.1 %; Neutrophils # (auto) 4.11 K/uL (1.4-6.5); Neutrophils % (auto) 76.3 %; Platelet Count 374 K/uL (130-400); RDW Standard Deviation 46.9 fL (36.4-46.3); Red Blood Count 3.29 M/uL (4.7-6.1); White Blood Count 5.39 K/uL (4.8-10.8)
--- NOTE | 2020-11-13 10:15 | Ultrasound Report ---
THYROID ULTRASOUND HISTORY: ?goiter COMPARISON: None. FINDINGS: Right lobe: 3.6 x 1.4 x 1.5 cm. The gland is heterogeneous. No nodules. Left lobe: 3.5 x 1.5 x 0.7 cm. The gland is heterogeneous. No nodules. Isthmus: 3 mm in thickness. No nodules. IMPRESSION: Heterogeneous thyroid gland. No nodules identified. ACT 112: Negative or not required by law. Electronically signed by: Wilver Gillespie M.D. 11/13/2020 10:13 AM
--- NOTE | 2020-11-13 10:30 | Gastrointestinal Consultation ---
Date of Consultation November 13, 2020 Assessment & Plan (1) Anemia: (2) Abnormal CT scan, colon: Discussed the CT results with patient at length. With concern for an ascending colon mass and possible early PSBO noted, I would advise inpatient colonoscopy tomorrow. Patient is not presently agreeable to an inpatient colonoscopy, noting that his priority was to receive a blood transfusion and complete the remainder of his work-up as an outpatient. He notes that he understands the risk of not assessing this at present, particularly if there is CT concern for a PSBO. He politely declines inpatient intervention at this time but notes that he would like to arrange an outpatient colonoscopy, which I will have my clinical staff move forward with. Supervising Physician Co-Signing Physician Notes Agree with ELIOT Carmona as above Patient refused inpatient workup and wishes to proceed with colonoscopy as an outpatient Discharged prior to my evaluation History of Present Illness Reason for Consultation: Anemia, colonic mass on CT scan Attending Physician: Silver Villar, History of Present Illness Patient is a 65 yo male without significant past medical history who was directed to the ER by his PCP for anemia. He notes that over the past several weeks he was feeling progressively weaker. He had some abdominal bloating and an instance of vomiting. He denies rectal bleeding or significant bowel habit changes. He was seen in the outpatient setting by a new PCP for this issue. His H/H was found to be 6.5/22.4. He was sent to the ER where he had a CT scan of the abdomen/pelvis that indicated the followin. Focal thickening within the proximal ascending colon at the level of the ileocecal valve which measures 4.6 cm in length. This is suspicious for a colonic mass. Follow-up colonoscopy is recommended for further evaluation. 2. Borderline dilated terminal ileum measuring up to 3.1 cm in diameter. Therefore, this could represent a low-grade partial small bowel obstruction secondary to the suspected colonic mass. 3. No evidence for metastatic disease. He has been transfused 2 units of PRBCs since admission and his H/H is now 8.3/26.3. GI has been consulted for further evaluation and for consideration of colonoscopy. Allergies Allergy/AdvReac Type Severity Reaction Status Date / Time No Known Allergies Allergy Unverified 11/12/20 22:17 Home Medications Medication Instructions Recorded Confirmed Type food supplemt, lactose-reduced 1 ea PO QAM 11/12/20 11/12/20 History 0.04 gram-1 kcal/mL oral liquid (Boost) pediatric multivitamin no.76 2 tab PO QAM 11/12/20 11/12/20 History (Gummy Dinos) levothyroxine 100 mcg tablet 100 mcg PO DAILYBB 30 Days #30 tab 11/13/20 Rx (Synthroid) Patient History Medical History (Updated 11/13/20 @ 17:17 by Kermit Orozco MD) History of cancer tonsil s/p surgical removal, chemo and XRT Surgical History No significant past surgical history Family History Other Intestinal cancer Thyroid cancer Social History Smoking Status: Former smoker Second Hand Exposure: No; Hx Alcohol Use: Yes Alcohol type: hard liquor Hx Substance Use: No Preferred Language: Venezuelan Communication Ability: Effective Beliefs That Will Affect Care: None marital status: Current Living Situation: Spouse Feels Safe at Home: Yes Assistive Devices: None Review of Systems Constitutional: no fever and no chills Respiratory: no cough and no dyspnea Cardiovascular: no chest pain Gastrointestinal: no abdominal pain, no nausea, no vomiting, no hematemesis, no change in bowel habits, no diarrhea/loose stools, no blood in stools and no melena Musculoskeletal: no problem reported Psychiatric: no problem reported Endocrine: + fatigue Hematologic / Lymphatic: no unexplained weight loss Physical Exam Constitutional: WD/WN, vitals as above Respiratory: normal respiratory effort, lungs clear to auscultation Cardiovascular: RRR, no murmur, no edema Gastrointestinal (Abdomen): normal bowel sounds, soft, nontender, no hepatosplenomegaly Musculoskeletal: Head/Neck/Chest: normocephalic Psychiatric: Orientation: alert and oriented x 3 Results & Data ([facility]) Vital Signs (Past 12 Hours) Vital Signs Temp Pulse Pulse Resp BP BP Pulse Ox 11/13/20 06:11 36.8 C 65 19 162/95 H 96 11/13/20 06:00 36.7 C 65 16 162/95 H 98 11/13/20 04:55 36.8 C 59 L 16 164/84 H 96 11/13/20 04:24 97 11/13/20 04:10 36.7 C 60 16 172/91 H 11/13/20 04:04 36.8 C 63 16 171/80 H 97 11/13/20 03:53 36.8 C 58 L 18 158/60 H 95 11/13/20 03:20 36.8 C 58 L 18 158/60 H 95 11/13/20 02:26 37.0 C 67 18 151/77 H 98 11/13/20 02:20 37.0 C 61 18 151/77 H 99 11/13/20 01:30 72 18 164/88 H 98 11/13/20 01:20 36.7 C 70 18 145/90 H 96 11/13/20 01:00 64 19 147/91 H 95 11/13/20 00:50 36.7 C 70 18 144/92 H 97 11/13/20 00:35 36.5 C 77 18 161/99 H 99 11/13/20 00:34 36.5 C 77 18 161/99 H 99 11/13/20 00:30 77 18 177/104 H 99 11/13/20 00:16 36.7 C 70 18 162/98 H 98 11/13/20 00:00 69 12 149/90 H 99 11/12/20 23:30 152/93 H 96 11/12/20 23:00 158/84 H 98 11/12/20 22:30 73 14 153/97 H 98 PG Care Time/CCT Total # of Minutes Spent Total Time Spent with Patient: Total time spent is greater than 50% in coordination of care (as documented) at patient's floor/unit and/or counseling patient: Coding Level of Care Code 26940 Initial Inpt Care Lvl [address] scan, colon R93.3 Anemia D64.9
--- NOTE | 2020-11-13 15:28 | Discharge Summary ---
Date of Service November 13, 2020 Admission HPI Per Admitting Provider Buck Watson is a pleasant 65yo male presenting with symptomatic anemia requiring transfusion. He reports progressive generalized weakness, lightheadedness over the last 1.5 months. He notes a decreased exercise tolerance and low energy level - needing to stop several times while mowing the lawn or walking up his steep driveway lately. He also has episodic lightheadedness, mostly noted with changing positions. Patient had a syncopal event yesterday. He was cleaning up after dinner and became lightheaded and dizzy with some blurry vision after bending over. He sat down in the chair to rest then remembers waking up to his shouting his name. He had a small amount of vomit on his shirt when he woke up. He denies chest pain, palpitations, SOB or RICHTER. He denies head trauma or fall. No melena, hemetemesis. He reports occasionally experiencing some blood in the toilet bowl after a BM but thinks it may be secondary to hemorrhoids. No bruising or bleeding. No hematuria. No history of prior blood transfusions. ER Course: 2u PRBCs Specialty Data Family Medicine 151/77, 67, 19, 36.8, 96% on room air Upon day of discharge, the patient was without complaints. He was ambulatory in the hallway without dizziness or lightheadedness. He notes that his fatigue was markedly improved. HEENT: Grossly unremarkable Cardiovascular: Regular rate and rhythm Lungs: Clear with nonlabored respirations Abdomen: Soft and nontender upon my examination. No masses or tenderness in the right lower quadrant appreciated. Extremities: Without edema Discharge Data Consultations 11/13/20 00:00 ED Decision to Admit Stat 11/13/20 10:01 Consult Gastroenterology Routine Hospital Course (1) Abnormal CT scan, colon: (2) Anemia: The patient was transfused 2 units of packed red blood cells. Upon repeat, his hemoglobin had improved and he was amatory in the hallway without lightheadedness or dizziness. A CT scan of the abdomen and pelvis was suggestive of a colonic mass near the terminal ileum; there is also suggestion of a potentially developing partial small bowel obstruction, likely due to the mass. The patient was seen in consultation by gastroenterology. The recommendation by gastroenterology and myself was to prep the patient for a colonoscopy during this admission. However, the patient was rather adamant about returning home and following up as an outpatient. I discussed with him the potential complications of his anemia, as well as potential complications from his potential developing small bowel obstruction. I carefully reviewed the signs and symptoms of bothprogressive anemia and a bowel obstructionwith instructions to return to the emergency department for the specific symptoms. I emphasized that the preferable work-up would be as an inpatient. With the patient's preference to return home, declining further inpatient work- up which I think is warranted, we will proceed with the followin) Outpatient colonoscopy. The patient tells me that the gastroenterology office is already called his home and has spoken to his . 2) Repeat CBC on Wednesday of next week. An order replaced in the outpatient EMR. 2) Outpatient follow-up with his primary care physician at [facility] in 1 to 2 weeks Time spent with patient: 45 minutes; Documentation and coordination fo care: 20 minutes (3) Hypothyroidism: Patient was started on Synthroid 100 mcg daily. Recheck TSH in 6 to 8 weeks.
--- NOTE | 2020-11-13 18:50 | Electrocardiogram Report ---
Test Reason : Blood Pressure : / mmHG Vent. Rate : 072 BPM Atrial Rate : 072 BPM P-R Int : 154 ms QRS Dur : 110 ms QT Int : 418 ms P-R-T Axes : 054 -01 106 degrees QTc Int : 457 ms Normal sinus rhythm with sinus arrhythmia No previous ECGs available Confirmed by Bartolo Vega ([id number]) on 11/13/2020 6:50:27 PM Referred By: Zackary Boyd Confirmed By:Magdy Vega
[2020-11-14 13:41] LABS: Microsomal Ab 1 IU/mL (<9); Thyroglobulin 41.6 ng/mL; Thyroglobulin Antibodies <1 IU/mL (< or = 1)
== END 2020-11-13 15:48 | disposition home or self-care (01) ==
LOC: 3E 17:24 → ED 17:24 → SUATTDRO 11-13 00:47 → 3E 11-13 01:41

== ENCOUNTER 2020-12-19 05:06 | Inpatient (IN) ==
--- NOTE | 2020-12-17 13:27 | Anesthesiology Consultation ---
Date of Service December 17, 2020 Assessment & Plan (1) Encounter for pre-operative examination: The patient has a newly diagnosed colon cancer that has caused symptomatic anemia. He has required blood transfusions, yet the patient remains anemic. This procedure has been deemed life/limb. - anemia, presenting issue of colon adenocarcinoma with initial Hgb at 6 per general surgery note. Patient transfused last month, Hgb 7.2 on labs today 12/17/2020. Case discussed with Dr. Villavicencio who advised type and cross x 2 units and repeat H&H am DOS. These were ordered. Patient aware of needed type and cross, will come to [facility] today or tomorrow. Loretta at Dr. Moran's office made aware of hemoglobin levels and will leave to surgeon's discretion on how to proceed (i.e. if transfusion needed DOS). - significantly elevated TSH last month (84), patient in PCP clinic 2 weeks [address] per chart. Dr. Villavicencio advised contacting the PCP to confirm they have addressed this. Bridgette in Dr. Burns's office advised message sent to Dr. Burns and they will call office with update. Patient reports no adjustment to levothyroxine recently to his recollection, verbalized understanding not to self-adjust and that he would need to further discuss with PCP. I received call from Dr. Burns 12/18/2020 who advised elevated TSH was at time of hypothyroidism diagnosis and patient was subsequently started on levothyroxine. He reports thyroid ultrasound was normal. He advised plan to obtain repeat TSH today and requested I notify surgeon's office of current status/plan. He advised will contact patient. - Dr. Moran returned my call and confirmed awareness of elevated TSH and interim history, plan as above and he advised no further questions/action needed prior to surgery. He advised that plans to transfuse patient 2 units PRBCs am DOS. Case reviewed with Dr. Villavicencio who - Patient requiring admission post-operatively. Plan for recheck with MIGUEL Fagan AM DOS due to possibility that patient may have a roommate. OR aware. Fagan order placed. - h/o tonsillar CA, s/p surgical removal, chemo and XRT 2012. - anesthesia record 12/09/2020 colonoscopy: no issues noted on anesthesia progress note. - COVID screening: Per assessment on 12/17/2020: Travel screen negative, no known COVID-19 positive contacts or current COVID-19 related symptoms. Patient vaccinated. Surgeon arranging preop COVID testing, scheduled today. Awaiting results. Chart Review Chart Review: Patient NOT seen in Pre Admission Testing History Surgery Operation Date: 12/19/20 10:05 Proposed Procedures p Laparoscopic Right Hemicolectomy Possible Open Right Hemicolectomy - Jarad Moran DO Height/Weight Height: 5 ft 10 in Weight: 94.347 kg Allergies Allergy/AdvReac Type Severity Reaction Status Date / Time No Known Allergies Allergy Unverified 12/16/20 14:22 Medications Home Medications Medication Instructions Recorded Confirmed Last Taken food supplemt, lactose-reduced 1 ea PO QAM 11/12/20 12/17/20 12/08/20 08:00 0.04 gram-1 kcal/mL oral liquid (Boost) pediatric multivitamin no.76 2 tab PO QAM 11/12/20 12/17/20 12/08/20 09:00 (Gummy Dinos) levothyroxine 100 mcg tablet 100 mcg PO DAILYBB 30 Days #30 tab 11/13/20 12/17/20 12/09/20 05:30 (Synthroid) Past Medical History Medical History (Updated 12/18/20 @ 10:13 by Iggy Jay DO) Abnormal abdominal CT scan Anemia Diverticulosis GERD (gastroesophageal reflux disease) diet controlled History of cancer tonsil 2012; s/p surgical removal, chemo and XRT History of colon polyps Hypothyroidism Mass of colon Past Family History Family History Mother Colorectal cancer Father Cancer Other Intestinal cancer Thyroid cancer Past Surgical History Surgical History History of cancer surgery cancer of tonsil 2013 History of colonoscopy Social History Smoking Status: Former smoker Do You Dip or Chew Tobacco: No Smoking End Date: 2012 Hx Alcohol Use: Yes Alcohol type: beer, wine and hard liquor alcohol intake frequency: a few times a month Hx Substance Use: No substance use type: does not use Lab Results Anesthesia Preop Results Results Anesthesia Widget: WBC 6.08 K/uL (4.8-10.8) 12/17/20 Hgb 7.2 g/dL (14.0-18.0) L 12/17/20 Hct 23.1 % (42-52) L 12/17/20 Plt 407 K/uL (130-400) H 12/17/20 Na 137 mmol/L (136-145) 11/12/20 K 3.9 mmol/L (3.5-5.1) 11/12/20 Cl 103 mmol/L (98-107) 11/12/20 CO2 28 mmol/L (21-32) 11/12/20 BUN 25 mg/dl (7-18) H 11/12/20 Creat 1.37 mg/dl (0.6-1.4) 11/12/20 Glucose Level 96 mg/dl (70-99) 11/12/20 TSH 84.000 uIu/ml (0.300-4.500) H 11/12/20 Free T4 0.33 ng/dl (0.8-1.6) L 11/12/20 Urine Color Yellow 11/12/20 Urine Appearance Clear (Clear) 11/12/20 Urine pH 5.5 (4.5-7.5) 11/12/20 Urine Specific [place] 1.025 (1.000-1.030) 11/12/20 Urine Protein Trace (Negative) H 11/12/20 Urine Glucose (UA) Negative (Negative) 11/12/20 Urine Ketones Negative (Negative) 11/12/20 Urine Blood Negative (Negative) 11/12/20 Urine Nitrite Negative (Negative) 11/12/20 Urine Bilirubin Negative (Negative) 11/12/20 Urine Urobilinogen Negative (Negative) 11/12/20 Urine Leukocyte Esterase Negative (Negative) 11/12/20 COVID-19 PCR NEGATIVE (Negative) 11/12/20 Blood Type B Positive 12/17/20 Antibody Screen NEGATIVE 12/17/20 Testing Electrocardiogram Date: 11/12/20 Normal sinus rhythm with sinus arrhythmia, rate 72 bpm. No previous ECGs available Confirmed by Bartolo Vega. Chest X-Ray Date: 11/12/20 IMPRESSION: 1. No acute cardiopulmonary abnormality. 2. Question an 8 mm nodular density in the right upper lung. This may be artifactual. Nonemergent chest CT is recommended for further assessment.
[~2020-12-19 05:06] MED LIST: SODIUM CHLORIDE 0.9% 250 ML IV PRN
[2020-12-19 05:54] LABS: Hematocrit (blood only) 23.1 % (42-52)
[2020-12-19] MEDS ORDERED: ceFAZolin 2000MG 2,000 MG/15 ML SYR IV SCH (06:00)
[2020-12-19] MEDS ORDERED: HEPARIN SOD 5,000 UNIT/0.5 ML VIAL SC SCH (06:00)
[2020-12-19] MEDS ORDERED: LR 15ML/HR IV SCH (06:00)
[2020-12-19] MEDS ORDERED: LIDOCAINE HCL/D5W 2000 MG/500 ML BAG IV ONE (06:35)
[2020-12-19] MEDS ORDERED: SUGAMMADEX SODIUM 200 MG/2 ML VIAL IV ONE (06:36)
--- NOTE | 2020-12-19 07:47 | History & Physical Bridge Note ---
Date of Service December 19, 2020 History & Physical Bridge Note I have examined the patient, reviewed the History & Physical and in the interval since the performance of the History & Physical I have noted the following changes of clinical significance: pt pre-op hg 7...receiving 2 unitis of PRBC's....otherwise no changes...
[2020-12-19] MEDS ORDERED: ATROPINE SULFATE 0.1 MG/ML 10ML SYR IV PRN (08:16)
[2020-12-19] MEDS ORDERED: ONDANSETRON INJ 2 MG/ML 2 ML VIAL IV PRN ×2 (08:16→14:14)
[2020-12-19] MEDS ORDERED: ePHEDrine sulfate 50 MG/ML AMP IV PRN (08:16)
[2020-12-19] MEDS ORDERED: ALBUMIN HUMAN 5% 12.5 GM/250 ML VIAL IV ONE (08:30)
[2020-12-19] MEDS ORDERED: DEXAMETHASONE SOD INJ 4 MG/ML VIAL ONE (09:49)
[2020-12-19] MEDS ORDERED: MIDAZOLAM HCL 1 MG/ML 2ML VIAL ONE (09:49)
[2020-12-19] MEDS ORDERED: PROPOFOL IV EMULSION 10 MG/ML 20 ML VIAL IV ONE (09:49)
[2020-12-19] MEDS ORDERED: LIDOCAINE 2% 2 ML VIAL/AMP(20MG/ML) INFIL ONE (09:49)
[2020-12-19] MEDS ORDERED: ROCURONIUM BROMIDE 10 MG/ML 5 ML VIAL IV ONE ×2 (09:49→11:05)
[2020-12-19] MEDS ORDERED: ONDANSETRON INJ 2 MG/ML 2 ML VIAL ONE (09:49)
[2020-12-19] MEDS ORDERED: fentaNYL citrate 100 MCG/2 ML VIAL ONE (09:49)
[2020-12-19] MEDS ORDERED: BUPIVACAINE 0.5 % 5 MG/1 ML MPF 30ML VIAL ONE (09:53)
[2020-12-19] MEDS ORDERED: EPINEPHrine INJ 1 MG/ML AMP ONE (09:54)
[2020-12-19] MEDS ORDERED: GLYCOPYRROLATE 0.2 MG/ML VIAL ONE (10:53)
[2020-12-19] MEDS ORDERED: ePHEDrine sulfate 50 MG/ML SYR ONE (10:53)
[2020-12-19] MEDS ORDERED: PHENYLEPHRINE 100MCG/ML 5ML SYR ONE (11:23)
--- NOTE | 2020-12-19 12:36 | Post Operative Brief Note ---
PG Immediate Post Op with CF Date of Surgery December 19, 2020 Pre & Post Diagnosis Operation Date: 12/19/20 10:05 Pre-Op Diagnosis: Adenocarcinoma of Transverse Colon Post-Op Diagnosis: Adenocarcinoma of Transverse Colon I identified the patient and participated in the time-out.: Yes Procedure Operation Date: 12/19/20 10:05 Actual Procedures p Right Laparoscopic Hemicolectomy - Jarad Moran DO Surgeon Jarad Moran DO Director Trial huey Aleman Estimated Blood Loss 100 Findings Consistent with Post-Op Diagnosis Specimens Specimen Description: A. Cecum, Right Colon, Portion of Transverse Colon (fresh) Drains Palmer Catheter
[2020-12-19] MEDS: fentaNYL citrate 100 MCG/2 ML VIAL IV PRN ×3 (12:48→13:04)
[2020-12-19] MEDS: HYDROmorphone INJ 1 MG/ML SYRINGE IV PRN ×4 (13:06→13:26)
[2020-12-19 13:36] LABS: Hematocrit (blood only) 21.1 % (42-52); Hemoglobin 6.7 g/dL (14.0-18.0)
--- NOTE | 2020-12-19 14:07 | Operative Report ---
PG Post Operative Report Pre & Post Diagnosis Operation Date: 12/19/20 10:05 Pre-Op Diagnosis: Adenocarcinoma of cecum and Transverse Colon Post-Op Diagnosis: Adenocarcinoma of cecum and Transverse Colon I identified the patient and participated in the time-out.: Yes Procedure Operation Date: 12/19/20 10:05 Actual Procedures p Right Laparoscopic Hemicolectomy - Jarad Moran DO Surgeon Jarad Moran DO Preschool Program Director huey Aleman Estimated Blood Loss 100 Findings Consistent with Post-Op Diagnosis Specimens cecum, right colon, portion of transverse colon Description of Procedure After informed consent was obtained the patient was taken to the operating room and placed in supine position. After successful intubation the abdomen was shaved. A Palmer catheter was inserted sterilely. The arms were tucked and the abdomen was sterilely prepped and draped in usual fashion. The supraumbilical incision was made with an 11 blade scalpel and carried down through the soft tissue using cautery. The anterior rectus fascia was opened using cautery and two #0 Vicryl stay sutures were placed. The peritoneum was elevated using hemostats and incised under direct vision using a Metzenbaum scissor. A finger sweep was performed and a 12 mm Castillo trocar was placed. The abdomen was insufflated to 18 mmHg. Laparoscope was inserted and the abdomen examined in 360 degrees. No gross abnormalities were initially identified. Liver and peritoneal surfaces appeared to be free of any metastatic disease. A suprapubic 5 mm port and a left lower quadrant 12 mm port and eventually a subxiphoid 5 mm port would be placed all under direct vision. The patient was placed in a Trendelenburg position and slightly airplane to the left. Began by examining the right lower quadrant. The cecum was dilated. There was a retracted apple core type lesion seen in the right colon. There is also tattooing just distal to this. We were unable to identify any tattoo puente on the proximal transverse colon. I was able to free up the appendix and cecum. I used the harmonic scalpel to take down the white line of [place]old[place] laterally and free up the entire right colon up to and around the hepatic flexure as well as mesentery of the appendix. I then transected the terminal ileum several inches proximal to the ileocecal valve using a AGUS 60 mm brown cartridge linear stapler. Next we found a point on the transverse colon just proximal to the middle colic vessels. We created a window in the mesentery and transected the large bowel using another AGUS 60 mm stapler. We then used blunt dissection as well as Harmonic scalpel to take down the mesentery of the transverse colon right colon and cecum. We tried to stay as low on the mesentery as safely possible to incorporate as many nodes as possible. We were able to identify the duodenum to keep it out of harm's way. Eventually we had the entire colon disconnected from its mesentery. We then extended the subxiphoid incision horizontally and open the fascia. We are able to deliver the transverse colon right colon cecum appendix and terminal ileum in 1 large piece. It was sent to pathology. I was unable to palpate the transverse colon polyp as it has been completely removed by GI. I did have the entire proximal one half of the transverse colon in the specimen. Next we delivered the staple line of the small bowel as well as the transverse colon staple line out through the same incision. We used a AGUS brown cartridge linear stapler to create a side to side ileotransverse anastomosis. The common enterotomy was closed using a TA 60 stapling device. 3-[address] was [address] to place a crotch stitch. The anastomosis was then placed back into the abdominal cavit y. We closed the fascia of this incision using 0 PDS starting on either pole and running them and securing them together in the midline. At this point we both changed our gloves. We then reinsufflated the abdomen. I suctioned out a small amount of blood in the right upper quadrant. The anastomosis laid nice and tension-free and there did not appear to be any twisting of the mesentery. It was patent with no evidence of ischemia. Final irrigation was performed. No other gross abnormalities were identified. The trochars were all removed. The fascia of the camera port was closed using 0 Vicryl in a [id number] fashion. All the wounds were irrigated and closed using a skin stapler. Silver Acticoat gauze and tape were used as a dressing. The patient was awakened extubated and transferred recovery in stable condition. My physician preschool assistant was present for the entire case. He was instrumental in assistance with prepping the patient exposure throughout the entire procedure assistance with the anastomosis wound closure and dressing placement. I attest to the content of the Intraoperative Record and any orders documented therein. Any exceptions are noted below.
[2020-12-19] MEDS ORDERED: HYDROmorphone INJ 0.5 MG/0.5 ML SYR IV PRN (14:14)
--- NOTE | 2020-12-19 14:29 | Anesthesiology Progress Note ---
Date of Service December 19, 2020 Anesthesia Post Procedure Vital Signs Vital Signs: Temp Pulse Pulse Pulse Pulse Resp BP 12/19/20 14:15 37.1 C 81 18 12/19/20 13:45 37.2 C 73 23 12/19/20 13:35 37.2 C 78 17 12/19/20 13:25 37.2 C 71 19 12/19/20 13:15 75 21 12/19/20 13:05 74 22 12/19/20 12:55 74 21 12/19/20 12:45 69 12 12/19/20 12:39 36.2 C L 71 18 12/19/20 09:45 36.8 C 68 18 166/91 H 12/19/20 09:05 36.7 C 74 18 150/81 H 12/19/20 08:35 36.8 C 60 18 152/92 H 12/19/20 08:20 36.7 C 70 18 162/84 H 12/19/20 08:05 36.7 C 75 18 155/92 H 12/19/20 07:52 36.7 C 79 18 173/96 H 12/19/20 06:56 36.2 C L 68 18 143/83 H 12/19/20 06:26 36.4 C L 76 20 140/81 12/19/20 06:11 36.7 C 75 20 140/84 12/19/20 05:56 36.3 C L 95 H 20 134/82 12/19/20 05:35 36.3 C L 95 H 20 BP Pulse Ox 12/19/20 14:15 158/82 H 97 12/19/20 13:45 149/76 H 100 12/19/20 13:35 154/85 H 100 12/19/20 13:25 151/77 H 97 12/19/20 13:15 151/83 H 99 12/19/20 13:05 152/78 H 100 12/19/20 12:55 148/82 H 96 12/19/20 12:45 159/84 H 100 12/19/20 12:39 145/90 H 100 12/19/20 09:45 97 12/19/20 09:05 97 12/19/20 08:35 97 12/19/20 08:20 96 12/19/20 08:05 97 12/19/20 07:52 99 12/19/20 06:56 98 12/19/20 06:26 97 12/19/20 06:11 98 12/19/20 05:56 93 12/19/20 05:35 134/82 93 Pain Intensity Abdomen: Pain Intensity: 7 Transfer of Care Handoff Completed per policy Notes Mental Status: alert / awake / arousable and participated in evaluation Patient Amnestic to Procedure: Yes Nausea / Vomiting: adequately controlled Pain: adequately controlled Airway Patency, RR, SpO2: stable & adequate BP & HR: stable & adequate Hydration State: stable & adequate Anesthetic Complications: no major complications apparent and Pt Satisfied with anesthetic care
[2020-12-19] MEDS: LACTATED RINGER'S 1,000 ML IV SCH (14:37)
[2020-12-19] MEDS ORDERED: SODIUM CHLORIDE 0.9% 250 ML IV PRN (15:04)
[2020-12-19] MEDS: HYDROmorphone INJ 0.5 MG/0.5 ML SYR IV PRN ×2 (15:52→20:08)
[2020-12-19] MEDS: ceFAZolin 2000MG 2,000 MG/15 ML SYR IV SCH (16:58)
[2020-12-19] MEDS: ACETAMINOPHEN 1,000 MG/100 ML VIAL IV SCH (16:58)
[2020-12-20] MEDS: ACETAMINOPHEN 1,000 MG/100 ML VIAL IV SCH ×2 (00:05→07:49)
[2020-12-20] MEDS: HYDROmorphone INJ 0.5 MG/0.5 ML SYR IV PRN ×6 (00:09→22:22)
[2020-12-20] MEDS: ceFAZolin 2000MG 2,000 MG/15 ML SYR IV SCH ×2 (00:09→07:49)
[2020-12-20] MEDS: LACTATED RINGER'S 1,000 ML IV SCH ×4 (00:42→17:42)
[2020-12-20] MEDS ORDERED: SODIUM CHLORIDE 0.9% 250 ML IV PRN (06:00)
[2020-12-20] MEDS: LEVOTHYROXINE SODIUM 100 MCG TABLET PO SCH (06:04)
[2020-12-20 07:34] LABS: Basophils # (auto) 0.01 K/uL (0-0.2); Basophils % (auto) 0.1 %; Eosinophils # (auto) 0.01 K/uL (0-0.5); Eosinophils % (auto) 0.1 %; Hematocrit (blood only) 33.1 % (42-52); Hemoglobin 10.5 g/dL (14.0-18.0); Immature Granulocytes # (auto) 0.02 K/uL (0.00-0.02); Immature Granulocytes % (auto) 0.2 %; Lymphocytes # (auto) 0.57 K/uL (1.2-3.4); Mean Corpuscular Hemoglobin 25.2 pg (25-34); Mean Corpuscular Hgb Conc 31.7 g/dL (32-36); Mean Corpuscular Volume 79.6 fL (80-100); Mean Platelet Volume 9.5 fL (7.4-10.4); Monocytes # (auto) 0.67 K/uL (0.11-0.59); Monocytes % (auto) 7.1 %; Neutrophils # (auto) 8.18 K/uL (1.4-6.5); Neutrophils % (auto) 86.5 %; Platelet Count 315 K/uL (130-400); RDW Coefficient of Variation 17.7 % (11.5-14.5); RDW Standard Deviation 51.7 fL (36.4-46.3); Red Blood Count 4.16 M/uL (4.7-6.1); White Blood Count 9.46 K/uL (4.8-10.8)
[2020-12-20 08:10] LABS: Calcium 8.7 mg/dl (8.5-10.1); Creatinine Clr Calc Pharmacy 83.5 ml/min; Est GFR (African American) 91.6 ml/min; Potassium 4.2 mmol/L (3.5-5.1)
[2020-12-20] MEDS: ENOXAPARIN INJ 40 MG/0.4 ML SYR SQ SCH (08:31)
--- NOTE | 2020-12-20 10:14 | Surgery Progress Note ---
Date of Service December 20, 2020 Assessment & Plan (1) Adenocarcinoma of transverse colon: Plan: pod 1 doing as expected d/c almonte can start clears SLOWLY h/h over 10 now...will monitor Dr. Mitchell television announcer for weekend. Admission and Anticipated Discharge Date Admission Date: December 19, 2020 Subjective doing ok. having expected pain post op but controlled . Physical Exam Physical Exam: alert. nad abd: soft. incisions/dressings c/d/i Results & Data ([facility]) Vital Signs (Past 12 Hours) Vital Signs Temp Pulse Pulse Resp BP BP Pulse Ox 12/20/20 06:23 36.5 C 58 L 16 165/78 H 97 12/19/20 22:30 36.4 C L 60 16 178/85 H 98 PG Care Time/CCT Total # of Minutes Spent Total Time Spent with Patient: Total time spent is greater than 50% in coordination of care (as documented) at patient's floor/unit and/or counseling patient: Coding Level of Care Code None Diagnoses Adenocarcinoma of transverse colon C18.4
[2020-12-20] MEDS ORDERED: hydrALAZINE 10 MG TAB PO STA (14:30)
[2020-12-20] MEDS ORDERED: ENALAPRILAT 0.625 MG in SYRINGE 9.5 ML IV PRN (18:15)
[2020-12-21] MEDS: LACTATED RINGER'S 1,000 ML IV SCH ×3 (03:39→22:52)
[2020-12-21] MEDS: HYDROmorphone INJ 0.5 MG/0.5 ML SYR IV PRN ×5 (03:40→22:50)
--- NOTE | 2020-12-21 05:44 | Surgery Progress Note ---
Date of Service December 21, 2020 Assessment & Plan (1) Adenocarcinoma of transverse colon: Plan: Postoperative day #2 right hemicolectomy Surgical pathology is pending Continue analgesics Continue antiemetics Continue clear liquids until bowel function has improved Continue IV fluid for hydration until oral intake is reliable Use incentive spirometry Increase ambulation Acute blood loss anemia was noted postoperatively. Patient has received a total of 4 units packed red blood cells. CBC this a.m. is pending Lovenox is in place for DVT prevention Admission and Anticipated Discharge Date Admission Date: December 19, 2020 Supervising Physician Co-Signing Physician Notes Patient seen and examined, agree with above. POD #2 extended right hemicolectomy by Dr. Moran. Feels better than yesterday, pain controlled, ambulating. No nausea. Feels bloated. No flatus or bowel movement. On exam he is afebrile stable vitals. His abdomen is soft and probably tender to palpation. Dressing was recently changed but incision had previously been assessed by Dany Meek and look good. WBC normal. Hematocrit stable. Continue clear liquids as tolerated, await return of bowel function, continue ambulation. Subjective Patient is resting comfortably in bed. He denies any significant abdominal pain at the present time. He denies any nausea vomiting. Since his surgery he says he has not passed any flatus and is not having any bowel movements yet. He says he has been out of bed to the restroom but has not ambulated a significant amount. He denies any fevers, shakes, chills. He denies any shortness of breath. Physical Exam Gastrointestinal (Abdomen): Abdomen is soft and nondistended. Bowel sounds are hypoactive. Patient's incisions are clean dry and intact. There is minor pain noted with palpation. Musculoskeletal: No calf tenderness Results & Data ([facility]) Vital Signs (Past 12 Hours) Vital Signs Temp Pulse Resp BP BP Pulse Ox 12/20/20 22:17 36.5 C 66 17 164/85 H 91 12/20/20 18:36 167/83 H 165/90 H 12/20/20 17:43 70 188/100 H PG Care Time/CCT Total # of Minutes Spent Total Time Spent with Patient: Total time spent is greater than 50% in coordination of care (as documented) at patient's floor/unit and/or counseling patient: Coding Level of Care Code None Diagnoses Adenocarcinoma of transverse colon C18.4
[2020-12-21] MEDS: LEVOTHYROXINE SODIUM 100 MCG TABLET PO SCH (06:18)
[2020-12-21 06:41] LABS: Basophils # (auto) 0.02 K/uL (0-0.2); Basophils % (auto) 0.2 %; Eosinophils # (auto) 0.07 K/uL (0-0.5); Eosinophils % (auto) 0.8 %; Hematocrit (blood only) 33.2 % (42-52); Hemoglobin 10.7 g/dL (14.0-18.0); Immature Granulocytes # (auto) 0.02 K/uL (0.00-0.02); Immature Granulocytes % (auto) 0.2 %; Lymphocytes % (auto) 7.8 %; Mean Corpuscular Hemoglobin 25.5 pg (25-34); Mean Corpuscular Hgb Conc 32.2 g/dL (32-36); Mean Platelet Volume 9.7 fL (7.4-10.4); Monocytes # (auto) 0.58 K/uL (0.11-0.59); Monocytes % (auto) 6.4 %; Neutrophils # (auto) 7.61 K/uL (1.4-6.5); Neutrophils % (auto) 84.6 %; Platelet Count 353 K/uL (130-400); RDW Coefficient of Variation 17.8 % (11.5-14.5); RDW Standard Deviation 51.5 fL (36.4-46.3)
[2020-12-21 07:17] LABS: BUN Creatinine Ratio 10.9 (10-20); Calcium 8.7 mg/dl (8.5-10.1); Creatinine Clr Calc Pharmacy 93.9 ml/min; Est GFR (African American) 103.7 ml/min; Est GFR (Non-African American) 89.5 ml/min; Potassium 3.8 mmol/L (3.5-5.1)
[2020-12-21] MEDS: ENOXAPARIN INJ 40 MG/0.4 ML SYR SQ SCH (08:49)
[2020-12-22] MEDS: LACTATED RINGER'S 1,000 ML IV SCH (05:31)
[2020-12-22] MEDS: LEVOTHYROXINE SODIUM 100 MCG TABLET PO SCH (05:31)
--- NOTE | 2020-12-22 05:54 | Surgery Progress Note ---
Date of Service December 22, 2020 Assessment & Plan (1) Adenocarcinoma of transverse colon: Plan: Postoperative day #3 right hemicolectomy Surgical pathology remains pending Continue analgesics Continue antiemetics Will continue clear liquids until bowel function has improved further We will continue IV fluids until certain oral intake will be reliable Encourage use incentive spirometry Encourage ambulation Acute blood loss anemia was noted perioperatively. Patient has received a total of 4 units packed red blood cells. CBC yesterday demonstrated stability of his hemoglobin and hematocrit. Labs this morning are pending Lovenox is in place for DVT prevention Admission and Anticipated Discharge Date Admission Date: December 19, 2020 Supervising Physician Co-Signing Physician Notes Patient seen and examined, agree with above. POD #3 extended right hemicolectomy by Dr. Moran. Passing flatus and had a loose bowel movement early this morning. Tolerating clears. Feeling better again today. On exam he is afebrile stable vitals. Abdomen soft, appropriate tender to palpation, incision without infection. Labs unremarkable. We will advance diet to full liquids, encourage ambulation. Dr. Moran returns tomorrow. Subjective Patient is resting in bed and he notes an uneventful day yesterday. He says he continues to tolerate clear liquids. He has not had a bowel movement since surgery but is passing flatus now. He notes he has minimal abdominal pain. He does not note any nausea or vomiting this morning. He denies any shortness of breath, fever, shakes, chills. Physical Exam Gastrointestinal (Abdomen): Abdomen is soft with minimal distention. Bowel sounds are present. Incision is clean, dry, intact. There is appropriate tenderness near surgical incision. Results & Data ([facility]) Vital Signs (Past 12 Hours) Vital Signs Temp Pulse Resp BP Pulse Ox 12/21/20 22:35 36.5 C 92 H 16 137/92 94 PG Care Time/CCT Total # of Minutes Spent Total Time Spent with Patient: Total time spent is greater than 50% in coordination of care (as documented) at patient's floor/unit and/or counseling patient: Coding Level of Care Code None Diagnoses Adenocarcinoma of transverse colon C18.4
[2020-12-22 06:44] LABS: Basophils # (auto) 0.02 K/uL (0-0.2); Basophils % (auto) 0.2 %; Eosinophils # (auto) 0.19 K/uL (0-0.5); Eosinophils % (auto) 2.2 %; Hematocrit (blood only) 36.2 % (42-52); Hemoglobin 11.5 g/dL (14.0-18.0); Immature Granulocytes # (auto) 0.02 K/uL (0.00-0.02); Immature Granulocytes % (auto) 0.2 %; Lymphocytes # (auto) 0.61 K/uL (1.2-3.4); Lymphocytes % (auto) 6.9 %; Mean Corpuscular Hemoglobin 25.1 pg (25-34); Mean Corpuscular Hgb Conc 31.8 g/dL (32-36); Mean Platelet Volume 9.2 fL (7.4-10.4); Monocytes # (auto) 0.82 K/uL (0.11-0.59); Monocytes % (auto) 9.3 %; Neutrophils # (auto) 7.12 K/uL (1.4-6.5); Neutrophils % (auto) 81.2 %; Platelet Count 323 K/uL (130-400); RDW Standard Deviation 52.2 fL (36.4-46.3); Red Blood Count 4.58 M/uL (4.7-6.1); White Blood Count 8.78 K/uL (4.8-10.8)
[2020-12-22 07:18] LABS: Calcium 8.4 mg/dl (8.5-10.1); Creatinine Clr Calc Pharmacy 98.4 ml/min; Est GFR (African American) 105.7 ml/min; Est GFR (Non-African American) 91.2 ml/min; Potassium 3.6 mmol/L (3.5-5.1)
[2020-12-22] MEDS: ENOXAPARIN INJ 40 MG/0.4 ML SYR SQ SCH (08:20)
[2020-12-23] MEDS: LEVOTHYROXINE SODIUM 100 MCG TABLET PO SCH (06:14)
[2020-12-23 07:26] LABS: Basophils # (auto) 0.01 K/uL (0-0.2); Basophils % (auto) 0.1 %; Hemoglobin 12.1 g/dL (14.0-18.0); Immature Granulocytes # (auto) 0.04 K/uL (0.00-0.02); Immature Granulocytes % (auto) 0.4 %; Lymphocytes % (auto) 6.2 %; Mean Corpuscular Hemoglobin 25.2 pg (25-34); Mean Corpuscular Hgb Conc 31.8 g/dL (32-36); Mean Platelet Volume 9.3 fL (7.4-10.4); Monocytes # (auto) 0.88 K/uL (0.11-0.59); Monocytes % (auto) 9.1 %; Neutrophils # (auto) 8.03 K/uL (1.4-6.5); Neutrophils % (auto) 83.2 %; Platelet Count 356 K/uL (130-400); RDW Coefficient of Variation 18.5 % (11.5-14.5); RDW Standard Deviation 53.3 fL (36.4-46.3); Red Blood Count 4.81 M/uL (4.7-6.1); White Blood Count 9.66 K/uL (4.8-10.8)
[2020-12-23 07:55] LABS: BUN Creatinine Ratio 17.8 (10-20); Calcium 9.1 mg/dl (8.5-10.1); Creatinine Clr Calc Pharmacy 52.7 ml/min; Est GFR (African American) 52.5 ml/min; Est GFR (Non-African American) 45.3 ml/min; Potassium 3.4 mmol/L (3.5-5.1)
[2020-12-23] MEDS: ENOXAPARIN INJ 40 MG/0.4 ML SYR SQ SCH (08:32)
--- NOTE | 2020-12-23 08:42 | Surgery Progress Note ---
Date of Service December 23, 2020 Assessment & Plan (1) Adenocarcinoma of transverse colon: Plan: doing well will try low residue diet ( pt did not like the liquid diets.) path pending potential d/c tomorrow if he tolerates diet. Admission and Anticipated Discharge Date Admission Date: December 19, 2020 Subjective pt feeling well today. no further nausea. +bm's. no pain. Physical Exam Physical Exam: alert. nad abd: soft. incisions all look good. non-distended. non-tender. Results & Data ([facility]) Vital Signs (Past 12 Hours) Vital Signs Temp Pulse Resp BP Pulse Ox 12/23/20 05:42 36.4 C L 87 15 142/92 H 92 12/22/20 23:15 36.3 C L 93 H 15 124/84 91 PG Care Time/CCT Total # of Minutes Spent Total Time Spent with Patient: Total time spent is greater than 50% in coordination of care (as documented) at patient's floor/unit and/or counseling patient: Coding Level of Care Code None Diagnoses Adenocarcinoma of transverse colon C18.4
[2020-12-24] MEDS: LEVOTHYROXINE SODIUM 100 MCG TABLET PO SCH (05:46)
[2020-12-24] MEDS: ENOXAPARIN INJ 40 MG/0.4 ML SYR SQ SCH (07:48)
--- NOTE | 2020-12-24 12:09 | Surgery Progress Note ---
Date of Service December 24, 2020 Assessment & Plan (1) Adenocarcinoma of transverse colon: Plan: doing great. no issues ok for d/c instructions discussed. f/u in 1 week. Admission and Anticipated Discharge Date Admission Date: December 19, 2020 Subjective pt seen. feeling great. cha diet. no pain. no nausea. wants to go home Physical Exam Physical Exam: alert. oriented. nad abd: soft. nt. incisions look good. Results & Data ([facility]) Vital Signs (Past 12 Hours) Vital Signs Temp Pulse Pulse Resp BP Pulse Ox 12/24/20 09:22 36.4 C L 80 78 18 118/81 97 12/24/20 07:28 36.4 C L 80 18 118/81 97 PG Care Time/CCT Total # of Minutes Spent Total Time Spent with Patient: Total time spent is greater than 50% in coordination of care (as documented) at patient's floor/unit and/or counseling patient: Coding Level of Care Code None Diagnoses Adenocarcinoma of transverse colon C18.4
--- NOTE | 2020-12-24 15:42 | Discharge Summary ---
Date of Service December 24, 2020 Principal Diagnosis Adenocarcinoma of cecum Transverse colon polyp Anemia Discharge Exam Constitutional WD/WN, vitals as above Gastrointestinal (Abdomen) Inspection/Auscultation: + abdominal surgical incision (no erythema); abdomen not distended Percussion/Palpation: abdomen soft Discharge Data Allergies Allergy/AdvReac Type Severity Reaction Status Date / Time No Known Allergies Allergy Unverified 12/19/20 05:30 Procedures Performed Operation Date: 12/19/20 10:05 Actual Procedures p Right Laparoscopic Hemicolectomy - Jarad Moran DO Hospital Course (1) Anemia: 65 y/o male with cecal mass and transverse colon polyp on colonoscopy was now taken to the operating room for laparoscopic extended right hemicolectomy. Procedure was well tolerated. He was anemic preoperatively (hgb 7) and was given a total 4 units PBRCs the day of surgery. Hemoglobin improved to 10 after transfusion. Lovenox was used for DVT prophylaxis. He was kept on clear liquids until day 3 when he had returning bowel function. He was having bowel movements by day 4 and was tolerating an advancing diet. By POD 5 he was tolerating low fiber diet. Hemoglobin had equilibrated to 12. He was stable for discharge home. Total Time Total Time Spent Total Time Spent (In Minutes): 15 Discharge Plan Discharge Items Patient Disposition: Home - Self-Care Reason For Visit: Invasive Poorly Differentiated Adenocarcinoma, Tra Discharge Diagnosis: partial colectomy Activity: As commented below Lifting: No more than 10 pounds Bathing Comment: Ok to shower Driving/Machine Use: when pain free Non-emergency contact: Surgeon Call non-emergency contact if: you have any medication questions, your pain is not controlled, you have a fever, your temperature is above 101.5 and your wound has increased redness Follow-up/Referrals: Jarad Moran DO [Surgeon] - 12/31/20 9:00 am ( appt in 1 week to have anel removed) Moises Burns MD [Primary Care Provider] - Ernst Shanks DMD [Physician] - (You should have an appt to have your tongue lesion checked, the office can help set this up when you come in for staple removal) Diet: Low Fiber Addtl Attending Provider Instructions: Pending Studies at Discharge: Yes Studies:: pathology Stand-Alone Forms: My [facility], Smoking Cessation Medications and DC Order Prescriptions: New hydrocodone-acetaminophen 5-325 mg tablet 1 - 2 tab PO .Q4-6h MDD 6 tabs PRN (Reason: pain, initial therapy) Qty: 12 RF: 0 Continued Gummy Dinos Tablet,Chewable 2 tab PO QAM RF: 0 Boost 0.04 gram- 1 kcal/mL Liquid 1 ea PO QAM RF: 0 levothyroxine [Synthroid] 100 mcg Tablet 100 mcg PO DAILYBB 30 Days Qty: 30 RF: 1 Discharge Orders: Discharge Order (Routine); Ordered 12/24/20 Ordered By: Jarad Zavala/Other Patient Handouts: Low-Fiber Diet Admission Data Admit Date/Time: 12/19/20 12:45 Attending Provider: Jarad Moran Admit Provider: Jarad Moran Primary Care Provider: Moises Burns Other Interventions: Discharge Summary Assessment (RN) Last Done: 12/24/20 09:22 Coding Level of Care Code D/C DAY MANAGEMENT <30 MINS Diagnoses Anemia D64.9
== END 2020-12-24 12:33 | disposition home or self-care (01) | DRG 330 ==
LOC: ASU 05:06 → 3N 12:45